=== PATIENT | female | born 1955 | race Caucasian/White ===

== ENCOUNTER → 2022-12-05 12:51 | Outpatient (CLI) | payer MEDICARE, OTHER, SELFPAY ==
--- NOTE | 2022-12-05 | DI.RAD.S_ITS ---
PROCEDURE: [place] JOINT INJECTION LARGE RT INDICATIONS: Other specified arthritis, right hip COMPARISON: None. TECHNIQUE: The indications, alternatives, benefits, risks, and complications of the procedure were explained to the patient. Written informed consent was obtained and placed in the chart. The patient was placed in an appropriate position on the fluoroscopy table, and a site was chosen for percutaneous access under fluoroscopic guidance. The site was prepped and draped in a sterile fashion. Local anesthetic was administered using a 1% lidocaine solution. A hypodermic or spinal needle was then used to access the symptomatic joint. Intra-articular location of the needle tip was confirmed by injecting a small amount of contrast, followed by steroid administration. The needle was then withdrawn, and a bandage applied to the puncture site. FINDINGS: Joint injected: Right hip Medications injected: 4 mL of 40 mg/mL Kenalog and 0.5% Ropivacaine mixture. Patient's pain before injection: 8 out of 10. Patient's pain after injection: 0 out of 10. Complications: None. IMPRESSION: Successful fluoroscopically guided administration of steroid and anaesthetic solution into the right hip joint. Approved by: Julien Curran M.D. on 12/05/2022 at 14:42
== END ==
PROVIDERS: PCP Registered Nurse; Referring Provider Registered Nurse; Visit Provider Registered Nurse
DX: M13.851 Other specified arthritis, right hip (principal)
CPT/HCPCS: 20610; 77002

== ENCOUNTER → 2023-04-24 12:38 | Outpatient (CLI) | payer MEDICARE, OTHER, SELFPAY ==
--- NOTE | 2023-04-24 | DI.RAD.S_ITS ---
PROCEDURE: [place] JOINT INJECTION LARGE RT INDICATIONS: ARTHRITIS RT HIP COMPARISON: [facility], , [place] JOINT INJECTION LARGE RT, 12/05/2022, 13:22. TECHNIQUE: The indications, alternatives, benefits, risks, and complications of the procedure were explained to the patient. Written informed consent was obtained and placed in the chart. The patient was placed in an appropriate position on the fluoroscopy table, and a site was chosen for percutaneous access under fluoroscopic guidance. The site was prepped and draped in a sterile fashion. Local anesthetic was administered using a 1% lidocaine solution. A hypodermic or spinal needle was then used to access the symptomatic joint. Intra-articular location of the needle tip was confirmed by injecting a small amount of contrast, followed by steroid administration. The needle was then withdrawn, and a bandage applied to the puncture site. FINDINGS: Joint injected: Right hip Medications injected: 6 mL of 40 mg/mL Kenalog and 0.5% Ropivacaine mixture. Patient's pain before injection: 8 out of 10. Patient's pain after injection: 0 out of 10. Complications: None. IMPRESSION: Successful fluoroscopically guided administration of steroid and anaesthetic solution into the right hip joint. Dictated by: Arie Omalley M.D. on 04/25/2023 at 13:34 Approved by: Arie Omalley M.D. on 04/25/2023 at 13:34
[2023-04-24] MEDS: ROPIVACAINE 0.5% PF 5 MG/ML 20ML VIAL 20 ML INJ (14:40)
[2023-04-24] MEDS: LIDOCAINE 1% 20 ML INJ (14:40)
[2023-04-24] MEDS: TRIAMCINOLONE 40 MG/ML VIAL INTRA-ARTI (14:41)
== END ==
PROVIDERS: PCP Registered Nurse; Referring Provider Registered Nurse; Visit Provider Registered Nurse
DX: M13.851 Other specified arthritis, right hip (principal)
CPT/HCPCS: 20610; 77002

== ENCOUNTER → 2023-06-09 12:42 | Outpatient (CLI) | payer MEDICARE, OTHER, SELFPAY ==
--- NOTE | 2023-06-09 12:43 | DI.RAD.S_ITS ---
PROCEDURE: [place] JOINT INJECTION MEDIUM LT INDICATIONS: Post-traumatic osteoarthritis bilateral shoulders COMPARISON: [facility], , [place] JOINT INJECTION MEDIUM RT, 06/09/2023, 14:31. TECHNIQUE: The indications, alternatives, benefits, risks, and complications of the procedure were explained to the patient. Written informed consent was obtained and placed in the chart. The patient was placed in an appropriate position on the fluoroscopy table, and a site was chosen for percutaneous access under fluoroscopic guidance. The site was prepped and draped in a sterile fashion. Local anesthetic was administered using a 1% lidocaine solution. A hypodermic or spinal needle was then used to access the symptomatic joint. Intra-articular location of the needle tip was confirmed by injecting a small amount of contrast, followed by steroid administration. The needle was then withdrawn, and a bandage applied to the puncture site. FINDINGS: Joint injected: Left glenohumeral joint Medications injected: 5 mL of 40 mg/mL Kenalog and 0.5% Ropivacaine mixture. Patient's pain before injection: 4 out of 10. Patient's pain after injection: 4 out of 10. Complications: None. IMPRESSION: Successful fluoroscopically guided administration of steroid and anaesthetic solution into the left glenohumeral joint. Dictated by: Mahesh Ling M.D. on 06/09/2023 at 16:06 Approved by: Mahesh Ling M.D. on 06/09/2023 at 16:06
--- NOTE | 2023-06-09 12:43 | DI.RAD.S_ITS ---
PROCEDURE: [place] JOINT INJECTION MEDIUM RT INDICATIONS: Post-traumatic osteoarthritis bilateral shoulders COMPARISON: [facility], , [place] JOINT INJECTION LARGE RT, 04/24/2023, 13:11. TECHNIQUE: The indications, alternatives, benefits, risks, and complications of the procedure were explained to the patient. Written informed consent was obtained and placed in the chart. The patient was placed in an appropriate position on the fluoroscopy table, and a site was chosen for percutaneous access under fluoroscopic guidance. The site was prepped and draped in a sterile fashion. Local anesthetic was administered using a 1% lidocaine solution. A hypodermic or spinal needle was then used to access the symptomatic joint. Intra-articular location of the needle tip was confirmed by injecting a small amount of contrast, followed by steroid administration. The needle was then withdrawn, and a bandage applied to the puncture site. FINDINGS: Joint injected: Right glenohumeral joint Medications injected: 5 mL of 40 mg/mL Kenalog and 0.5% Ropivacaine mixture. Patient's pain before injection: 5 out of 10. Patient's pain after injection: 5 out of 10. Complications: None. IMPRESSION: Successful fluoroscopically guided administration of steroid and anaesthetic solution into the right glenohumeral joint. Dictated by: Mahesh Ling M.D. on 06/09/2023 at 16:00 Approved by: Maehsh Ling M.D. on 06/09/2023 at 16:01
[2023-06-09] MEDS: TRIAMCINOLONE 40 MG/ML VIAL INTRA-ARTI ×2 (13:45→14:38)
[2023-06-09] MEDS: LIDOCAINE 1% 20 ML INJ (13:45)
[2023-06-09] MEDS: ROPIVACAINE 0.5% PF 5 MG/ML 20ML VIAL 3 ML INJ (13:45)
== END ==
PROVIDERS: PCP Registered Nurse; Referring Provider Physician Assistant Surgical; Visit Provider Physician Assistant Surgical
DX: M19.112 Post-traumatic osteoarthritis, left shoulder (principal); M19.111 Post-traumatic osteoarthritis, right shoulder
CPT/HCPCS: 20605; 77002

== ENCOUNTER → 2024-04-12 12:35 | Outpatient (CLI) | payer MEDICARE, OTHER, SELFPAY ==
--- NOTE | 2024-04-12 12:37 | DI.RAD.S_ITS ---
PROCEDURE: [place] JOINT INJECTION MEDIUM RT INDICATIONS: RIGHT HIP STEROID INJECTION COMPARISON: [facility], , [place] JOINT INJECTION MEDIUM LT, 06/09/2023, 14:49. TECHNIQUE: The indications, alternatives, benefits, risks, and complications of the procedure were explained to the patient. Written informed consent was obtained and placed in the chart. The patient was placed in an appropriate position on the fluoroscopy table, and a site was chosen for percutaneous access under fluoroscopic guidance. The site was prepped and draped in a sterile fashion. Local anesthetic was administered using a 1% lidocaine solution. A hypodermic or spinal needle was then used to access the symptomatic joint. Intra-articular location of the needle tip was confirmed by injecting a small amount of contrast, followed by steroid administration. The needle was then withdrawn, and a bandage applied to the puncture site. FINDINGS: Joint injected: Right hip Medications injected: 4 mL of 40 mg/mL Kenalog and 0.5% Ropivacaine mixture. Patient's pain before injection: 8 out of 10. Patient's pain after injection: 2 out of 10. Complications: None. IMPRESSION: Successful fluoroscopically guided administration of steroid and anaesthetic solution into the right hip joint. Dictated by: Jordi Szymanski M.D. on 04/12/2024 at 15:27 Approved by: Jordi Szymanski M.D. on 04/12/2024 at 15:32
[2024-04-12] MEDS: LIDOCAINE 1% 20 ML INJ (14:16)
[2024-04-12] MEDS: ROPIVACAINE 0.5% PF 5 MG/ML 20ML VIAL 3 ML INJ (14:16)
[2024-04-12] MEDS: TRIAMCINOLONE 40 MG/ML VIAL INTRA-ARTI (14:37)
== END ==
PROVIDERS: PCP Registered Nurse; Referring Provider Orthopaedic Surgery Adult Reconstructive Orthopaedic Surgery; Visit Provider Orthopaedic Surgery Adult Reconstructive Orthopaedic Surgery
DX: M16.11 Unilateral primary osteoarthritis, right hip (principal)
CPT/HCPCS: 20605; 77002; Q9967

== ENCOUNTER → 2024-07-28 14:42 | Outpatient (CLI) | payer MEDICARE, OTHER, SELFPAY ==
--- NOTE | 2024-07-28 15:07 | EKG_ITS ---
[facility] [address] [place] [address] Test Date: 2024-07-28 Pat Name: Kaela Carlson Department: [facility] Room: Gender: Female [employer] [place]: RAUDEL : 1955 Requested By: Order Number: [id number] Reading MD: Jeffrey Fisher Measurements Intervals [place] Rate: 120 P: ID: QRS: -24 QRSD: 92 T: 6 QT: 350 QTc: 494 Interpretive Statements Atrial fibrillation with rapid ventricular response Nonspecific ST and T wave abnormality Electronically Signed On 07-28-2024 23:46:22 PST by Jeffrey Fisher
[2024-07-28 15:30] LABS: Add Manual Diff / Slide Review NO; Basophils Absolute Auto 0 /uL (0-100); Basophils Percent Auto 0.6 % (0-2); Eosinophils Absolute Auto 300 /uL (0-450); Eosinophils Percent Auto 3.3 % (2-4); Hematocrit 43.8 % (36-46); Hemoglobin 14.8 g/dL (12.0-16.0); Lymphocytes Absolute Auto 1800 /uL (1100-4500); Lymphocytes Percent Auto 24.2 % (25-40); Mean Corpuscular HGB Conc 33.7 % (30-36); Mean Corpuscular Hemoglobin 33.6 PG (26-34); Mean Corpuscular Volume 99.7 fL (80-100); Monocytes Absolute Auto 1000 /uL (0-900); Neutrophils Absolute Auto 4400 /uL (1500-7000); Neutrophils Percent Auto 58.9 % (50-75); Platelet Count 300 X10^3/uL (150-400); Red Cell Distribution Width 13.7 % (11.6-14.8); White Blood Cell Count 7.5 X10^3/uL (4.5-11.0)
[2024-07-28 15:50] LABS: Albumin 4.2 g/dL (3.5-5.0); BUN Creatinine Ratio 29.1 (6-22); Blood Urea Nitrogen 16 mg/dL (7-17); Calcium 9.2 mg/dL (8.4-10.2); Carbon Dioxide 28 mmol/L (22-32); Chloride 98 mmol/L (98-107); Estimated Glomerular Filt Rate > 60 mL/min (>60); Glucose 103 mg/dL (80-110); HEMOLYSIS < 15 (0-50); Potassium 4.6 mmol/L (3.4-5.1); Sodium 137 mmol/L (137-145)
[2024-07-28 15:58] LABS: Prealbumin 17.3 mg/dL (17.6-36.0)
[2024-07-28 18:25] LABS: Vitamin D 25 Hydroxy (D3) 59.8 ng/mL (30.0-100.0)
[2024-07-28 21:01] LABS: Hemoglobin A1C% w Est Avg Glu 5.1 % (4.0-6.0)
== END ==
PROVIDERS: PCP Registered Nurse; Referring Provider Orthopaedic Surgery Adult Reconstructive Orthopaedic Surgery; Visit Provider Orthopaedic Surgery Adult Reconstructive Orthopaedic Surgery
DX: Z01.818 Encounter for other preprocedural examination (principal); R73.9 Hyperglycemia, unspecified; E55.9 Vitamin D deficiency, unspecified; R77.0 Abnormality of albumin; Z01.812 Encounter for preprocedural laboratory examination
CPT/HCPCS: 36415; 80048; 82040; 82306; 83036; 84134; 85025; 93005

== ENCOUNTER 2024-08-27 08:56 | Day surgery (SDC) | payer MEDICARE, OTHER, SELFPAY ==
[2024-08-17 09:54] VITALS: BMI 39.9
[2024-08-27] VITALS (8 sets, daily range): BP systolic 105–119; BP diastolic 64–94; PULSE 77–98; RESP 14–24; TEMP 35.8–36.3; O2SAT 90–99; BMI 39.0
--- NOTE | 2024-08-27 | DI.RAD.S_ITS ---
PROCEDURE: XR HIP W PEL IF DONE RT 2V INDICATIONS: RT ANTERIOR HIP TECHNIQUE: AP pelvis and lateral view of the hip acquired. COMPARISON: [facility], [place]Y, XR HIP W PEL IF DONE RT 2V, 08/27/2024, 12:37. FINDINGS: Bones: Patient is status post right hip arthroplasty, with hardware components in expected positions. The hip joint appears congruent. The visualized bony structures appear intact. Soft tissues: Overlying postoperative changes are noted. No suspicious soft tissue densities. Intrauterine device noted within the pelvis. IMPRESSION: Expected post-operative appearance of a hip arthroplasty. Dictated by: Lincoln Contreras M.D. on 08/28/2024 at 10:50 Approved by: Lincoln Contreras M.D. on 08/28/2024 at 10:51
--- NOTE | 2024-08-27 06:00 | DI.RAD.S_ITS ---
PROCEDURE: XR HIP W PEL IF DONE RT 2V INDICATIONS: lynnette TECHNIQUE: 6 operative view(s) of the hip acquired. COMPARISON: None. FINDINGS: 6 operative fluoroscopic images were utilized during total right hip arthroplasty. No radiographic evidence of complications. IMPRESSION: Operative imaging utilized during total right hip arthroplasty. Dictated by: Heath Martinez M.D. on 08/27/2024 at 13:30 Approved by: Heath Martinez M.D. on 08/27/2024 at 13:30
[2024-08-27] MEDS: MELOXICAM 7.5 MG TABLET 15 MG PO (09:31)
[2024-08-27] MEDS: LACTATED RINGERS 1,000 ML 42 ML IV ×2 (09:31→12:50)
[2024-08-27] MEDS: ACETAMINOPHEN 325 MG TABLET 975 MG PO (09:31)
--- NOTE | 2024-08-27 10:30 | PM.PREOP ---
Pre-operative Note Interval Note History & Physical reviewed/Exam performed by Physician: Yes Changes to H&P: No
--- NOTE | 2024-08-27 10:36 | PM.PREOP ---
Pre-operative Note Interval Note History & Physical reviewed/Exam performed by Physician: Yes Changes to H&P: No
[2024-08-27] MEDS: CEFAZOLIN 2 GM/100 ML PREMIX 100 ML IV ×2 (11:10→20:01)
[2024-08-27] MEDS: TRANEXAMIC ACID 1,000 MG VIAL 2000 MG INJ ×2 (11:15→12:51)
--- NOTE | 2024-08-27 11:40 | SUR.OPER ---
Supine on padded Cash table with bilateral legs secured in padded positioning boots and suspended in positioning spars, operative leg in traction per surgeon. Head on one pillow. Arms secured on padded armboard <90 degrees abduction. Padded perineal post in place per surgeon.
[2024-08-27] MEDS: ROPIVACAINE/EPI/CLONIDINE/KET 50 ML SYRINGE INJ (12:02)
--- NOTE | 2024-08-27 13:07 | P.OP_ITS ---
Operative Date/Time/Diagnoses Date of procedure: 08/27/24 Pre-op diagnosis: Right hip osteoarthritis Post-op diagnosis: same Procedure & Clinicians Procedure: Right total hip arthroplasty Same procedure as scheduled: Yes Surgeon: Eric Sanon [employer] Officer: Anne Marie Henderson Anesthesia Type: General, Spinal, Sedation and Local Operative Notes Estimated Blood Loss (mL): 100 Procedure in detail: Right Uncemented Direct Anterior Depuy Total Hip Arthroplasty: Implants: * [place] Gription size 56 cup? * [Actis] femoral stem size 7 high offset? * 36 mm -2 ceramic femoral head? Procedure Summary: This 69-year-old female patient had a total hip arthroplasty today. Her case was noteworthy for the following reasons: 1. The time I initially saw her she had a BMI of 47. I counseled her that an anterior approach total hip arthroplasty at that weight carried an unacceptably high complication rate and therefore recommended weight loss prior to proceeding with surgery. She has used a GLP agonist to lose weight since that time. Her current BMI is 40. During surgery today utilized an obstetric pannus retractor to manage her overlying pannus. I will prescribe prophylactic cefadroxil 500 mg twice per day for 10 days postoperatively to limit her infection risk which remains elevated given her BMI. 2. The patient practices the Islam gladis and does not accept blood products. I therefore utilized a werewolf electrocautery device during today's procedure to limit blood loss. I took extra precautions to coagulate all of her adipose tissue during the approach in particular. I estimated blood loss at 100 mL at the conclusion of the procedure. 3. The patient has cardiac risk factors and takes Xarelto 20 mg at baseline. I personally contacted her administrative assistant to inquire about the feasibility of temporarily transitioning her to Eliquis 5 mg twice per day postoperatively to limit her bleeding risk after surgery and he was amenable to this so she will utilize that for a month postoperatively for DVT prophylaxis in order to limit her bleeding risk relative to Xarelto. 4. She had severe pain due to her hip arthritis and found it very challenging to stand normally for her x-ray so our templating film was not particularly helpful and anticipating sizes for today's surgery. I therefore utilized several rounds of trialing to attempt to find the right combination of leg length offset and stability before arriving at the final construct that was eventually implanted. Procedure in Detail: This patient was seen preoperatively and evaluated for hip pain which was refractory to numerous nonoperative treatment modalities. Their hip pain correlated with radiographic changes demonstrating significant degeneration in the hip joint. The risks and benefits of continued nonoperative management versus operative management were discussed at length and all of the patient?s questions were answered. Additional educational materials providing further details beyond our discussion in clinic were provided via a publicly available patient education video which included the incidence of medical complications associated with total hip arthroplasty, reasons for revision following total hip arthroplasty, and patient satisfaction rates following total hip arthroplasty. That video can be accessed at [email or web address] . With this understanding of the risks inherent to the procedure, the patient elected to move forward with operative management. Following preoperative optimization, the patient was scheduled for surgery. The patient was met in the preoperative holding area the day of the procedure and all questions were answered. The patient?s nares were swabbed with betadine in order to decolonize them from MRSA. Informed consent was signed and the right limb was marked with indelible ink.? The patient was brought back to the operating room where anesthesia was induced. The patient was transferred to the [place] table and all bony prominences were padded. The operative site was prepped and draped in the usual sterile fashion. Prior to incision, tranexamic acid and cefazolin were administered. Operative templating images were displayed demonstrating the anticipated implant sizes and correct operative extremity. A timeout procedure was performed verifying the patient?s identity, medical comorbidities, allergies, relevant medications, anesthesia type and the surgical plan. All present were in agreement. The assistance of a physician speech assistant was required for positioning, room setup, soft tissue retraction and wound closure. Without this assistance, the procedure would have been significantly more challenging and time consuming.?? A direct anterior approach to the hip was utilized. This was performed with a longitudinal incision through a Heuter interval. The incision was planned 2 cm distal and 2 cm lateral to the ASIS extending towards the lateral patella, in line with the muscle body of the TFL. Following incision, the subcutaneous tissue was dissected while taking care to avoid injury to the lateral femoral cutaneous nerve. The fascia overlying the TFL was identified by dissecting off the overlying fat and identifying perforating vessels to the TFL. The TFL fascia was incised and dissected away from the medial border of the TFL. A retractor was placed over the superior femoral neck between the abductors and the hip capsule and used to reflect the TFL laterally. A [place] self-retainer was then placed in the distal aspect of the wound between the TFL and the rectus femoris. This was tensioned to open up the direct anterior interval and the lateral circumflex vessels were identified and coagulated using electrocautery. The floor of the TFL fascia was incised, exposing the pericapsular fat overlying the hip capsule. A second cobra retractor was placed on the inferior femoral neck. A retractor was placed on the anterior wall of the acetabulum and used to tension the reflected head of rectus femoris, which was then released in order to limit soft tissue tension. A capsulotomy was made in the midline of the anterior hip capsule in line with the femoral neck ending at the vastus tubercle. The retractor was removed in order to limit the amount of time that a soft tissue retractor remained on the anterior wall and limit tension on the femoral nerve. Tag stitches were placed in the superior and inferior leaflets of the hip capsule. An Telly soft tissue retractor was introduced over the tag stitches and tensioned in the interval between the rectus femoris and the TFL in order to retract and protect those muscles. The cobra retractors were replaced intracapsularly, with one over the superior neck in the pocket created by the base of the greater trochanter and the other on the femoral head. The capsulotomy was extended laterally to the base of the greater trochanter and medially to the lesser trochanter. This required externally rotating the hip. Once the lesser trochanter had been identified, a neck cut was planned according to measurements from preoperative templating. A ruler was cut at the length measured between the superior aspect of the lesser trochanter and the collar of the prosthesis. This line was extended towards the inferior aspect of the lateral cobra retractor to plan a cut which would leave minimal residual femoral neck laterally. The neck was cut at 60 degrees of external rotation along that line. A second cut was performed to remove a large napkin ring and facilitate head extraction. The napkin ring cut and femoral head were removed.?? A broad anterior wall retractor was placed between the labrum and the anterior capsule so that the anterior capsule would prevent capturing and pinching the femoral nerve anteriorly. An additional retractor was placed on the posterior wall. External rotation and traction were applied through the [place] table so that the cut surface of the femoral neck would not restrict access to the acetabulum. The labrum was excised sharply and the pulvinar was excised with electrocautery to limit bleeding from branches of the obturator artery. Ac etabular reamers were selected based on preoperative templating and measurements of the excised femoral head. These were introduced into the acetabulum. Fluoroscopy was utilized to replicate a standing AP pelvis radiograph by centering over the pelvis, rotating until there was appropriate symmetry between the obturator foramen, and introducing caudal tilt to match the position of the pubic symphysis relative to the sacrococcygeal junction according to the patient?s anatomy. Once satisfied with the reaming depth corresponding to the preoperative template and the pinch fit between the columns, an appropriate sized acetabular cup was selected which would provide 1 mm of press-fit. This cup was introduced and manipulated until appropriate abduction and anteversion angles were obtained with careful attention to appropriate abduction and anteversion angles as evaluated by the position of the cup relative to the anterior and posterior lopez of the acetabulum and the AP fluoroscopy which recreated the patient?s standing radiograph. The cup was impacted into place. Peripheral osteophytes were removed. The acetabular liner was then placed with care to ensure locking of the locking mechanism.? Attention was then turned to the femur. All retractors were removed, traction was released, a retractor was placed in the interval between the hip capsule and the gluteus minimus, and the hip was externally rotated to 90 degrees. The lateral capsule was released using electrocautery. Traction was released and a [place] hook was placed posteriorly around the proximal femur at the level of the vastus ridge. The table height was lowered in order to restrict the tension on the anterior structures during hip hyperextension to limit the risk of femoral nerve palsy. With traction off and the hip at 90 degrees of external rotation, the hip was hyperextended and adducted while manually elevating the femur away from the acetabulum with the [place] hook to ensure it would not be caught behind the greater trochanter. An asymmetric retractor was placed over the calcar and a broad double-pronged retractor was placed over the greater trochanter. The tag stitch capturing the lateral leaflet of the capsule was moved to the medial side, leaving the conjoined and piriformis tendons isolated in the face of the greater trochanter. The hip was externally rotated and elevated. A release of the conjoined tendon was [not] necessary in order to obtain adequate exposure for broaching. The canal was opened with an opening broach and a rasp was used to remove cancellous bone. A rongeur was used to remove the residual lateral bone at the base of the greater trochanter to avoid placing the stem in varus. The femur was then broached to the appropriate sized stem yielding good rotational fit and fill of the canal as well as appropriate version of the stem trial. Neck and head trials were placed, all retractors were removed and the hip was returned to neutral abduction and extension. I then reduced the hip and manually trialed it before changing surgical gloves. Initial trialing was performed with a size 7 broach, a high offset neck and a +5 head. I could not reduce the hip with the construct so I returned to the broaching position and removed the trials and placed a standard offset stem along with the +5 head. I returned to neutral hip extension and reduced it. I could not dislocate the hip with maximum manual external rotation. I then locked the hip in 45 degrees of external rotation and dropped it to the floor with traction off which demonstrated no instability. An AP pelvis fluoroscopic image matching the preoperative standing radiograph with both lesser trochanters visible and both hips in 40 degrees of external rotation demonstrated that the operative site was excessively long and had insufficient offset. I therefore again removed the trials and placed a high offset neck with a-2 head. This would result in increased offset while decreasing length. I repeated the stability trialing and again found no instability with either maximum external rotation or the 45 degree drop test. On an AP pelvis with a long metal bar extending across the transitional line leg length and offset now appeared appropriate. AP and lateral hip fluoroscopic images were obtained to evaluate the broach size which demonstrated good canal fill. The hip was dislocated and I returned to the broaching position. Based on my evaluation during initial trialing I planned to place those implants. The definitive stem was placed and the trunnion was cleaned and dried. I placed a ceramic head onto the trunnion and impacted it into place on the [place] taper.?? All retractors were removed and the hip was reduced. A dilute mixture of betadine and peroxide was used to bathe the soft tissues during final fluoroscopic assessment. Appropriate component positioning was confirmed on an AP pelvis radiograph with the operative and nonoperative legs in 40 degrees of external rotation, evaluating leg length and offset. Appropriate stem fill was evaluated on AP and lateral hip radiographs. No fractures were identified on these radiographs. There was no hip instability with maximum (110?) external rot ation as well as a 45 degree drop test. The hip was copiously irrigated with pulse lavage. The capsule was closed with absorbable interrupted suture. The TFL fascia was closed with barbed suture wh ile carefully protecting the lateral femoral cutaneous nerve from entrapment. A mixture of Ropivacaine, Epinephrine, Clonidine and Toradol was infiltrated throughout the soft tissues. The skin was closed with 2-0 and 3-0 sutures. Surgical glue was applied and a soft dressing was placed.??The sponge, instrument and needle counts were reported as being correct at the end of the case.??No obvious complications occurred. The patient was transferred from the [facility] back to a stretcher. The patient emerged from anesthesia without difficulty and was taken to the PACU in a stable condition.? Plan for aftercare: * No hip precautions * Weightbearing as tolerated * Eliquis 5 mg twice per day beginning tomorrow for DVT prophylaxis * Cefadroxil 500 mg twice per day for infection prophylaxis * The patient's has several medical conditions of his own and the patient is worried about his ability to care for her after surgery so we will enlist the help of social work to arrange home health nursing * Anticipate discharge home tomorrow * Multimodal pain regimen with no IV opioids ordered * Apply ice machine to operative hip. Ensure that sufficient ice is in the chamber for the pad to remain cold * Follow up at [facility] in 2 weeks * Detailed postoperative instructions available at [email or web address]
[2024-08-27] MEDS: OXYCODONE IR 5 MG TABLET PO ×3 (13:58→21:45)
[2024-08-27] MEDS: hydrOXYzine 50 MG/ML INJ 25 MG IM (14:01)
[2024-08-27] MEDS: ACETAMINOPHEN 325 MG TABLET 650 MG PO ×2 (15:09→20:01)
[2024-08-27] MEDS: IBUPROFEN 600 MG TABLET PO ×2 (15:10→20:01)
[2024-08-27] MEDS: LACTATED RINGERS 1,000 ML 100 ML IV (15:13)
--- NOTE | 2024-08-27 16:39 | PT-IP ANOTE ---
PT eval order received. EMR reviewed. Checked on pt and pt still has numbness on unable to move LLE much and not ready for PT. obtained PLOF and home set up. post-op folder provided to pt. will checked back on pt tomorrow for PT eval.
[2024-08-27] MEDS: DOCUSATE 100 MG CAPSULE PO (20:52)
[2024-08-27] MEDS: ATORVASTATIN 20 MG TABLET 40 MG PO (20:52)
[2024-08-28] MEDS: ACETAMINOPHEN 325 MG TABLET 650 MG PO ×3 (02:29→14:15)
[2024-08-28] MEDS: OXYCODONE IR 5 MG TABLET PO ×2 (02:29→09:19)
[2024-08-28] MEDS: IBUPROFEN 600 MG TABLET PO ×3 (02:29→14:15)
[2024-08-28] MEDS: CEFAZOLIN 2 GM/100 ML PREMIX 100 ML IV (02:30)
[2024-08-28 02:32] VITALS: BP 131/78; PULSE 102; RESP 18; TEMP 36.2; O2SAT 98
[2024-08-28 08:00] VITALS: BP 100/69; PULSE 97; RESP 14; TEMP 36.3; O2SAT 98
[2024-08-28 08:37] LABS: Hematocrit 34.1 % (36-46); Hemoglobin 11.8 g/dL (12.0-16.0)
--- NOTE | 2024-08-28 08:45 | PT.IIE ---
Current Diagnoses Unilateral primary osteoarthritis, right hip (08/27/24) Surgery Performed Operation Date: 08/27/24 10:45 Actual Procedures p Total Hip Arthroplasty/Anterior Approach(Right) - Eric Sanon MD Surgical History (Last Reviewed 08/27/24 @ 09:17 by Susu Mclean, RN) History of tonsillectomy and adenoidectomy Hx of cholecystectomy Medical History (Last Updated 08/27/24 @ 09:17 by Susu Mclean, RN) Anxiety Aortic root dilatation Atrial fibrillation Carotid atherosclerosis Chronic diastolic (congestive) heart failure Depression Eczema Heart failure HLD (hyperlipidemia) HTN (hypertension) Hx of precordial chest pain IUD (intrauterine device) in place No blood products Obesity (BMI 30-39.9) Osteoarthritis Paranoia Physical Therapy Inpatient Evaluation/Re-Eval M1 PT/OT-IP Prior Functional Status Start: 08/27/24 16:36 Freq: NEEDED Status: Active Protocol: Document 08/28/24 08:45 AB (Rec: 08/28/24 13:20 AB [id number]) Medical Review Prior Functional Status Medical History Reviewed Yes Communication able to make needs known Mobility and Gait pt stated that she was modified independent with all mobilities and ambulation using a 4WW indoors but uses her SPC only to transfer from bed<>lift chair; uses 2 SPC for outdoor mobility Social History Household Members spouse,family Living Arrangements House Number of Floors (Floors) Two Floors Number of Stairs To Enter/Railing? pt stays on main level of the house Home Environment Standard Height Toilet,Walk in Shower Home Equipment Front Wheel Walker,Four Wheel Walker,Straight Cane,Raised Toilet Seat w/Armrests,Shower Seat without Backrest,Hand Held Shower,Lift Recliner,Grab Bars Near Toilet,Grab Bars In Shower Additional Social History Comment pt lives with spouse but spouse will not be able to assist pt; pt's daughter is the caregiver for pt's spouse and stated that she cannot assist pt since she has to assist pt's spouse; pt's son and family lives upstairs but will not be able to assist pt. pt plans to sleep on her lift chair M2 PT-IP Current Condition Start: 08/27/24 16:36 Freq: NEEDED Status: Active Protocol: Document 08/28/24 08:45 AB (Rec: 08/28/24 13:20 AB [id number]) Physical Therapy Current Condition Current Condition Evaluation Date 08/28/24 Treatment Diagnosis s/p R REAGAN anterior; difficulty in walking Onset Date 08/27/24 M3 PT-IP Subjective Start: 08/27/24 16:36 Freq: NEEDED Status: Active Protocol: Document 08/28/24 08:45 AB (Rec: 08/28/24 13:20 AB [id number]) Subjective Physical Therapy Visit Type Type Initial Evaluation Visit Start Time 08:45 Visit Stop Time 09:25 Number of BLUEPRINTING AND PHOTOCOPY SUPERVISOR Visits 0 Physical Therapy Visit Comments Patient Comments agreeable to do PT Therapy Pain Assessment Pain When Pain Assessed At Rest Pain Present Pain Present Pain Reported Location Right Thigh Intensity 1 Pain Management Techniques Apply Cold,Distraction, Modification of Treatment, Timing of Activity with Medications M4 PT-IP Mobility and Gait Start: 08/27/24 16:36 Freq: NEEDED Status: Active Protocol: Document 08/28/24 08:45 AB (Rec: 08/28/24 13:20 AB [id number]) PT-Bed Mobility Assessment Supine to Sit Supine to Sit Maximum Assistance,1 Person Assistance PT-Transfer Assessment Sit to and From Stand Sit to and from Stand Standby Assistance,Contact Guard Assistance,1 Person Assistance,Use of Upper Extremities Equipment Transfer Assistive Device Gait Belt,Front Wheeled Walker Orthotic/Prosthetic Devices or Brace: No Transfers Transfer Destination Bed Transfer Technique ambulated Transfer Ability Level of Assist Standby Assistance,Contact Guard Assistance,1 Person Assistance,Use of Upper Extremities Comments Mobility Comments pt in bed. daughter in room. pt completed supine to sit max A and cues with HOB elevated. pt plans to sleep on her lift chair. sit to stand form EOB CGA and ambulated to chair ~ 15 ft CGA. offered pt's daughter to do caregiver training and daughter stated that she is a caregiver and knows what to do but will not be the person that is going to assist pt. daughter stated that she is taking care of her dad and will not be able to take care of pt at the same time. daughter has concerns about HH services and assistance for pt. informed manager of case management. pt completed sit to stand from chair SBA and ambulated more in room using FWW ~ 50 ft SBA. pt agreed to stay up on the chair. call light and table placed within reach. Gait Assessment Gait Gait Assistance Required: Standby Assistance,Contact Guard Assist Distance (Feet) 50 Able to Maintain Weight Bearing Status Yes During Gait Assistive Devices Assistive Device Gait Belt,Front Wheeled Walker Orthotic/Prosthetic Devices or Brace: No Gait Deviations General Gait Pattern Antalgic,Decreased Feet Clearance Factors Limiting Gait Function Factors Limiting Gait Function Decreased Activity Tolerance, Decreased Sensation,Decreased Strength,Limited Range of Motion,Pain,Poor Balance,Poor Safety Awareness PT-Balance Assessment Sitting Balance and Reactions Static Sitting Balance Ability Normal Dynamic Sitting Balance Ability Normal Standing Balance and Reactions Static Standing Balance Ability Good Dynamic Standing Balance Ability Fair Device Used FWW M5 PT-IP Objective Assessments Start: 08/27/24 16:36 Freq: NEEDED Status: Active Protocol: Document 08/28/24 08:45 AB (Rec: 08/28/24 13:20 AB [id number]) Orientation Orientation/Cognition Level of Alertness Alert Orientation Name,Place,Situation Language Function Ability No Deficits Noted Safety Awareness Decreased Safety Awareness Memory Description Short Term Impaired Gross Range of Motion Lower Extremity ROM Assessment Within Functional Limits Strength Lower Extremity Strength Assessment Right Impaired Hip 3-/5 Knee 3+/5 Coordination Assessment Gross Coordination Gross Coordination WNL Sensation Assessment Sensation Gross Sensation WNL Muscle Tone Muscle Tone WNL Yes M6 PT-IP Treatment Start: 08/27/24 16:36 Freq: NEEDED Status: Active Protocol: Document 08/28/24 08:45 AB (Rec: 08/28/24 13:20 AB [id number]) Physical Therapy Treatment Education Education Provided Precautions,Weight Bearing Status,Post-Op Packet,Safety M7 PT-IP Assessment and Plan Start: 08/27/24 16:36 Freq: NEEDED Status: Active Protocol: Document 08/28/24 08:45 AB (Rec: 08/28/24 13:20 AB [id number]) PT Summary Assessment and Plan Potential Rehabilitation Potential Fair Status of Condition at Evaluation Stable Summary Impairments Pain,ROM,Strength,Balance, Coordination,Sensation,Tone, Cognition,Bed Mobility, Transfers,Gait,Activity Tolerance Assessment Summary pt is a 69 y/o F s/p R REAGAN anterior approach. per Dr. Sanon's note: no hip precutions. pt is WBAT on RLE. pt requiring SBA for transfers and ambulation using FWW. pt requiring max A for bed mobility but plans to sleep on her lift chair. pt has outpt PT set up. offered caregiver training to pt's daughter but declined. Goals Bed Mobility Goal Independent Transfer Goal Independent,Front Wheeled Walker Gait Goal Independent,Front Wheel Walker Gait Distance 200 Other Goals improve transfers and ambulation using 4WW mod I ~ 250 ft Days to Meet Goals 5 Frequency of Treatment Frequency Of Treatment Twice a Day Treatment Plan Physical Therapy Treatment Plan Bed Mobility Training,Transfer Training,Gait Training, Therapeutic Exercise,Balance Retraining,Post Op Education, Discharge Planning,Hot or Cold Pack,Neuromuscular Re-ed, Coordination Retraining,Manual Therapy Weight Bearing Status Weight Bearing Status Weight Bear as Tolerated Allowed Weight Bearing Amount (enter % RLE WBAT or #) (%) Recommendations To Nursing Amount of Assist Needed Standby Assistance Discharge Recommendations PT Discharge Recommendations Home with Assistance, Outpatient PT Transportation Needs at Discharge Private Vehicle - PT assist SBA
[2024-08-28] MEDS: DULOXETINE 20 MG CAPSULE PO (09:20)
[2024-08-28] MEDS: METOPROLOL ER 50 MG TABLET 100 MG PO (09:20)
[2024-08-28] MEDS: DULOXETINE 30 MG CAPSULE 60 MG PO (09:20)
[2024-08-28] MEDS: FUROSEMIDE 20 MG TABLET PO (09:20)
[2024-08-28] MEDS: METFORMIN HCL 500 MG TABLET 1000 MG PO (09:21)
[2024-08-28 10:15] VITALS: BP 100/69
--- NOTE | 2024-08-28 12:08 | CM.DANOTE ---
Addendum entered by MIGUEL ANGEL Koehler 08/28/24 15:08: ADD: Per Ortho PA, pt stable for d/c and discharge summary complete and discharge orders in EMR. [facility] confirms they received the referral and can accept. SW met bedside with pt, spouse, and adult Dtr and updated on discharge pwk complete and provided [facility] brochure and Dtr still requests CG training with PT as she has a few final questions and discussion with family members earlier and they will all take turns checking on pt and spouse and providing assist as needed. Family confirms they are anxious and nervous about pt d/c home but aware no medical need to stay in the hospital. PT kindly will meet bedside with pt and Dtr to answer final questions for CG training. HINN letter printed and completed in case Dtr determines she will not take pt home but not given as they currently are confirming d/c home today. BF Original Note: Patient is a 69 yo female who was admitted [facility] on 08/27/24 for RTHA. Pt has [facility] and [facility] for insurance and her PCP is Carmelina Bhatti. EMR was reviewed. Per Zach PA, pt tolerated procedure well, pain is controlled and pt tolerated her diet and likely stable for discharge home this afternoon. Per PT, pt was mostly SBA for mobility and Dtr was present during eval and recommending home with outpt PT but family wanting HH. SW met bedside with pt and her adult Dtr Ludy and explained role and they confirm that pt and spouse live in [place] in the downstairs portion of their son's house. Local Dtr Ludy provides daily assist to pt's spouse at baseline. Dtr has concerns with providing assist for both pt and spouse. Dtr inquiring if pt can remain in the hospital or other options at d/c and SW explained pt meets [facility] criteria for her planned hip surgery and since pt is ambulating and no medical need to remain in the hospital for ongoing medical care then Medicare will not cover the cost of SNF (and likely she would not qualify as she is mostly SBA for mobility) or remaining in the hospital as she is stable for lower level of care. SW discussed HH services and frequency (they have used both [facility] and [facility] in the past) or Private Pay CGs or asking additional family members to assist at d/c for a day or two to confirm pt continues to ambulate around the house SBA. Dtr confirms that she will talk to her brother who lives upstairs and is around this weekend as well as some older teenager grandkids. Pt accidentally received an Important Message from Medicare and Dtr had considered appealing discharge but SW explained that pt does not meet Inpt Criteria under Medicare guidelines and would not be able to appeal. Dtr acknowledged understanding. Request for SW to make [facility] referral and pt's son will be bedside around lunchtime with other family members and PT kindly agreeable to do further CG training with them towards plan of discharge home this afternoon. SW made referral to [facility] along with [facility] and orders and just waiting for updated PT note and d/c summary to send. Plan: SW to follow for plan of home with son and Dtr assist this afternoon and new [facility] referral made. MIGUEL ANGEL Koehler Discharge Planning/Care Management CM Discharge Assessment Start: 08/28/24 12:05 Freq: Status: Active Protocol: Document 08/28/24 12:05 (Rec: 08/28/24 12:08 [id number]) Discharge Planning Assessment Assigned Wastewater Treatment Engineer MIGUEL ANGEL Cosme DPOA/Assigned Designee Name spouse Andriy and Dtr Ludy Contact Information [phone] Advance Directives? Yes Advance Directives on File No History Provided By Patient,Family Member,Medical Record Has Patient been admitted in last 30 No days? Prior Living Arrangements House Household Members spouse,family Comment Lives with spouse in downstairs level of son's house, local Dtr provides daily assist Type of transporation used prior to Relies on Others admit Independent with ADL's Yes Is patient alert and oriented? Yes Needs Assistance With Managing Medications,Home Chores / Shopping Caregiver for Another No: spouse needs assist but local Dtr provides assist Community Services used prior to Physical Therapy,Occupational admission: Therapy,Home Health Aid,Home Health Nurse Comment preference is [facility] Already Rented / Owned FWW / Walker Patient/Family Preference Home with Home Health Barriers to Discharge No Discharge Plan Home with Home Health Community Services Physical Therapy,Occupational Therapy,Home Health Aid,Home Health Nurse Transportation Arrangement Dtr and son bedside and can provide transport at d/c Referrals Initiated Home Health If patient plan is home with home health Yes : Has signed face to face form been completed? Medicare Choice List Provided Yes Medicare choice list reviewed on patient,family electronic tablet with SNF/HH Preference [facility] Whiteboard Updated in Patient Room with Yes name and ext. # of Wastewater Treatment Engineer Review Status In Process Please Provide Date Initial DC 08/28/24 Assessment Was Performed Next Review Type Continued Stay Review Pre-Anesthesia Assessment Start: 08/17/24 09:54 Freq: Status: Active Protocol: Document 08/17/24 09:54 CAB (Rec: 08/17/24 10:57 CAB [id number]) Pre-Anesthesia Assessment PAC Comment Phone assess 08/17/24 Patient Information Reviewed Via Phone Assessment Assessment Completed With Patient,Child Diagnostic Results BMP/CMP,CBC,EKG Primary Care Provider Renetta Mata Seen Specialist in Last 12 Months Yes Specialist Seen Stroke Belt Sander Operator,Orthopedist Primary Language [place]ese Stem Roller Or Crusher Operator Required No Height 165.1 cm Weight 108.862 kg Body Mass Index (BMI) 39.9 Hearing Ability Normal Visual Assist Glasses Dentition Type Teeth, Natural Present,Teeth, Missing Barriers to Learning None Other Aids No Hx Anesthesia Reactions No Hx Family Anesthesia Reaction No Hx Malignant Hyperthermia No Hx Blood Transfusions No: Pt is Presybeterian - NO BLOOD PRODUCTS Anesthesia Review Requested No Road Roller Operator No alcohol intake current alcohol intake frequency a few times a week Smoking Status Former smoker how long ago did patient quit smoking 1974 Substance Use Type [#R] does not use Pain Present Pain Reported Musculoskeletal Symptoms Abnormal Gait,Difficulty Walking,Joint Pain History of Falling (Recent or History of No ) Patient is completely paralyzed or No completely immobile Prosthesis or Orthotic Device Cane,Front Wheel Walker Mental Status Oriented to own ability Is patient on oxygen? No Does patient have RICARDO/SOB No Hx Sleep Apnea No Currently Taking a Beta Brie Yes Can You Climb a Flight of Stairs Without No SOB Hx Chest Pain No Hx SOB No Hx Syncope or Dizziness Yes: Occasional dizziness, chronic Anti-Coagulant Therapy Yes: Xarelto - advised to hold 2 days prior per cardiology Has a Stroke Belt Sander Operator Yes: Last visit 04/26/24 Stroke Belt S[address] Operator name Dr. Sparks @ [facility] Cardiac Testing No Hx Pacemaker/ICD No Pacemaker Rep Required? No Cardiac Clearance Received Yes Comment Cardiac records scanned and in surgery folder Diet Type At Home Regular Dysphagia No Gastrointestinal Symptoms None Bladder Pattern Frequency,Incontinent,Urgency Urinary Catheter Present No Hx Urinary Self Catheterization No Diabetes No HgbA1C 5.1 Date 07/28/24 Patient No Lactating No Hx Drug Resistant Organism No Presence of External or Internal Medical Yes: IUD Devices Comment No covid symptoms last 8 weeks Marital Status Lives With spouse,family Current Living Arrangements House Number of Floors (Floors) 3 or More Floors Support System None,Spouse Comment Daughter states no one in the home is able to care for patient post-op Does the Patient Have Assistance After No Surgery Patient Discharge Plan Description Return Home Comment Pt advised overnight length of stay per surgeon Feels Safe in Current Environment Yes Been Physically Hurt or Threatened By a No Person in Current Environment Do you have thoughts of harming yourself None or others? Are you currently considering suicide? No Do you have a plan to hurt yourself or No Plan others? Do You Have Any Spiritual Beliefs That Yes: Pt is Presybeterian - May Affect Your HC Choices? NO BLOOD PRODUCTS Do You Have Any Cultural Practices That No May Affect Your HC Choices? Who Can We Speak to About Patient's Care Family, friends Identifying Code for Release of Patient Declines to issue Information Health Care Proxy/Next of Kin Ludy (daughter) Health Care Proxy Emergency Contact Name Andriy () Emergency Contact or [phone] Advance Directives? Yes Advance Directives on File No Requested Patient Bring Advanced Yes Directives DOS Power of Fish Cutting Machine Operator Yes PAC Instructions Assistance for 24 hours post- op,Do not shave/clip surgical site,Durable medical equipment ,Medications to take/avoid,No ETOH/petroleum product on skin DOS,NPO,Pre-surgical wash, Sturdy shoes/comfortable clothes,Do not bring valuables and remove jewelry
--- NOTE | 2024-08-28 12:30 | P.DS_ITS ---
History of Present Illness History of Present Illness Chief complaint: OPB Narrative: Kaela is a pleasant 69 year old female who is POD#1 s/p R anterior REAGAN by Dr. Sanon. This morning patient reports she is doing well and is hopeful to d/c to home today. Her family expresses concerns about limited support at home d/t patient living alone w/ her who is not able to provide much physical support to patient during the immediate post-op period. Patient reports she has no steps at home. She has her post-op pain medication, ice machine and Eliquis at home already. (she is chronically anticoagulated due to AFib). She made good progress working with PT this morning, she has been urinating without issue. H&H this AM stable at 11.8 and 34.1. Denies fever, chills, chest pain, SOB, nausea, vomiting. Operative Date/Time/Diagnoses Date of procedure: 08/27/24 Pre-op diagnosis: Right hip osteoarthritis Post-op diagnosis: same Procedure & Clinicians Procedure: Right total hip arthroplasty Same procedure as scheduled: Yes Surgeon: Eric Sanon Parts Interpreter: Anne Marie Henderson Anesthesia Type: General, Spinal, Sedation and Local Operative Notes Estimated Blood Loss (mL): 100 Procedure in detail: Right Uncemented Direct Anterior Depuy Total Hip Arthroplasty: Implants: * [place] Gription size 56 cup? * [Actis] femoral stem size 7 high offset? * 36 mm -2 ceramic femoral head? Discharge Providers Provider Discharge Date: 08/28/24 Primary care physician: CHAPINCITO Damon Consults: 08/27/24 06:00 Consult to Anesthesiology Routine Comment: Consulting Provider: Anesthesiologist Reason for consultation: Regional block for post operative pain control Consult to [facility] - Intensive Care Unit Registered Nurse Routine Comment: Intensive Care Unit Registered Nurse Consult needed for:: Other reason (Comment) Unable to care for self Comment: Per daughter, patient may need discharge to a Longterm Facility at discharge; Daughter desiring to speak to ENGINEERING PSYCHOLOGIST 08/27/24 14:18 Consult to Discharge Planning Routine Comment: Consult to Physical Therapy Evaluate & Treat Comment: Physician Instructions: post op REAGAN protocol 08/27/24 16:28 Consult to Discharge Planning Routine Comment: Patient is requesting home health nursing 08/28/24 11:59 Consult to Home Health Routine Comment: RTHA Reason For Exam: Set up HH RN/PT/OT/CMV DRIVER for d/c to home Discharge provider: Carmela Galarza PA-C Summary Hospital Course Discharge Diagnosis: Stable status post right total hip arthroplasty Hospital Course: Uncomplicated hospital course Exam Vital Signs (past 8 hours): - 08/28/24 08:00 Temperature 97.4 F L Pulse Rate 97 H Respiratory Rate 14 Blood Pressure 100/69 Pulse Oximetry 98 Oxygen Flow Rate 0 Oxygen Delivery Method Room Air Oxygen Flow Rate 0 Narrative Exam Narrative: Patient sitting comfortably in bedside chair during our interview today. No acute distress. AOx3. Grossly normal alignment of the right lower extremity. 5/5 strength with DF, PF, EHL bilaterally. Gross sensation intact throughout bilateral lower extremities. Calves soft and non-tender bilaterally. Brisk capillary refill, pulses intact. Post-surgical Aquacel dressing clean, dry and intact over the right hip without drainage. Objective Labs 08/28/24 08:32 Labs: Laboratory Results - last 24 hr 08/28/24 08:32 Hgb 11.8 L Hct 34.1 L PFSH Medical History (Updated 08/27/24 @ 09:17 by Susu Mclean RN) Obesity (BMI 30-39.9) Hx of precordial chest pain HLD (hyperlipidemia) Chronic diastolic (congestive) heart failure Carotid atherosclerosis HTN (hypertension) Aortic root dilatation Paranoia Depression Anxiety Eczema Osteoarthritis IUD (intrauterine device) in place Heart failure No blood products Atrial fibrillation Surgical History History of tonsillectomy and adenoidectomy Hx of cholecystectomy Social History household members: spouse and family Smoking Status: Former smoker alcohol intake: current Discharge Assessment & Plan Assessment and Plan Assessment: stable s/p R REAGAN Plan of Treatment: 1) Plan to discharge to home today with daughter/family pending final PT evaluation. Working w/ CM to arrange for HH PT for the first week and half along w/ HH nurse aid and bath aid. This should provide the additional support needed for the family to care for patient adequately in the postoperative period. Discussed with the son possibility of filling out FMLA paperwork for him to allow him to stay home and care for the patient further if needed. He will contact our office next week if he would like paperwork filled out. 2) Continue multimodal pain management with ice to the hip for additional pain control. Patient has post-op pain medication at home already. 3) Eliquis 5 mg twice per day beginning today for DVT prophylaxis. 4) Start outpatient physical therapy to work on range of motion and mobility. WBAT, no hip precuations. 5) Keep dressing intact, clean, dry until 2 week postop appointment. No soaking the incision site in pools or tubs. No topical ointments or creams to the incision site. 6) Follow up at [facility] in 2 weeks for a postop appointment and wound check. 7) Cefadroxil 500 mg twice per day for infection prophylaxis All patient and the families questions were answered, they demonstrates understanding and are in agreement with the plan. Call our office if any questions or concerns arise. Discharge Plan Discharge Plan Patient Disposition: Home Discharge orders & Medications Discharge Orders: Discharge (Order); Ordered 08/28/24 Ordered By: Carmela Galarza Prescriptions: New cefadroxil 500 mg capsule 500 mg PO BID Qty: 20 0RF Continued atorvastatin 40 mg Tablet 40 mg PO BEDTIME metoprolol succinate 100 mg Tablet Extended Release 24 Hr 100 mg PO DAILY metformin 1,000 mg Tablet 1,000 mg PO BID furosemide [Lasix] 20 mg Tablet 20 mg PO QAM duloxetine 20 mg Capsule,Delayed Release(Dr/Ec) 20 mg PO DAILY duloxetine 60 mg Capsule,Delayed Release(Dr/Ec) 60 mg PO DAILY Discontinued Xarelto 20 mg Tablet 20 mg PO DAILY Rx Instructions: must administer with evening meal Follow up/Referrals: Carmelina Bhatti ARNP [Non-Staff] - Eric Sanon MD [Physician] - 09/08/24 4:10 pm (Follow up at [facility] office in [place]) Diet/Activity/Treatments Diet: Diet as Tolerated Activity: Weightbearing as tolerated. Cold/Heat Therapy: Ice to hip as needed for pain. Other treatments: Start Eliquis 5mg BID on the morning of 08/28/2024. Skin/Wound/Dressing Care Report to your healthcare provider any signs of infection, such as:: chills, fever, night sweats, unusual drainage and unusual redness Dressing: May shower. Leave dressing in place until follow up in office. No bathing or otherwise soaking incision. Call the office if the dressing becomes saturated inside. Visit Report/Discharge Packet Instructions: DI for Hip Replacement Stand Alone Forms: Patient Portal/API, Surgery Discharge Discharge Data Primary Care Provider: Renetta Mata Attending Provider: Eric Sanon VTE Deep Vein Thrombosis/Pulmonary Embolism Present on Admission: No
[2024-08-28] MEDS: cephALEXin 250 MG CAPSULE 500 MG PO (12:49)
--- NOTE | 2024-08-28 14:05 | PT.IPTN ---
Current Diagnoses Unilateral primary osteoarthritis, right hip (08/27/24) Surgery Performed Operation Date: 08/27/24 10:45 Actual Procedures p Total Hip Arthroplasty/Anterior Approach(Right) - Eric Sanon MD Physical Therapy Treatment Note M2 PT-IP Current Condition Start: 08/27/24 16:36 Freq: NEEDED Status: Active Protocol: Document 08/28/24 08:45 AB (Rec: 08/28/24 13:20 AB [id number]) Physical Therapy Current Condition Current Condition Evaluation Date 08/28/24 Treatment Diagnosis s/p R REAGAN anterior; difficulty in walking Onset Date 08/27/24 M3 PT-IP Subjective Start: 08/27/24 16:36 Freq: NEEDED Status: Active Protocol: Document 08/28/24 14:05 AB (Rec: 08/28/24 15:16 AB [id number]) Subjective Physical Therapy Visit Type Type Treatment Note Visit Start Time 14:05 Visit Stop Time 14:15 Number of CUSTOMIZER Visits 0 Therapy Pain Assessment Location Right Thigh Scale Used pain scale not stated Description Burning,Sharp Pain Management Techniques Distraction,Modification of Treatment,Re-positioning M4 PT-IP Mobility and Gait Start: 08/27/24 16:36 Freq: NEEDED Status: Active Protocol: Document 08/28/24 14:05 AB (Rec: 08/28/24 15:16 AB [id number]) PT-Transfer Assessment Sit to and From Stand Sit to and from Stand Standby Assistance,1 Person Assistance,Use of Upper Extremities Equipment Transfer Assistive Device Gait Belt,Front Wheeled Walker Orthotic/Prosthetic Devices or Brace: No Transfer Ability Level of Assist Standby Assistance,1 Person Assistance Comments Mobility Comments [employer] assistant manager spoke with pt and family and now wanting caregiver training and pt son should be coming to do training. [employer] assistant manager informed PT again that pt's son is not available but daughter still wants the training and have a few questions to PT. pt sitting on the chair. spouse in room and daughter. daughter wants to know if they can take safety belt home and if they need that safety belt on pt at all time. informed daughter that they can take the safety belt home and that the use of safety belt depends on pt's progress and safety but will be safer to use it for the first few days especially first thing in the morning as pt might be having more pain or tight from not able to move overnight. informed that pt should stand first and see how steady she feels before moving and pt understood. daughter also understood. daughter was able to put safety belt on pt. pt completed sit to stand from chair SBA and ambulated in room using fWW ~ 40 ft SBA. daughter provided SBA. pt sat back on chair and positioned. pt and daughter without further concerns. informed [facility] that pt needs assist for getting clothes on for d/c. Gait Assessment Gait Gait Assistance Required: Standby Assistance Distance (Feet) 40 Able to Maintain Weight Bearing Status Yes During Gait Assistive Devices Assistive Device Gait Belt,Front Wheeled Walker Orthotic/Prosthetic Devices or Brace: No Gait Deviations General Gait Pattern Antalgic Factors Limiting Gait Function Factors Limiting Gait Function Decreased Activity Tolerance, Decreased Strength,Limited Range of Motion,Pain,Poor Balance,Poor Safety Awareness M5 PT-IP Objective Assessments Start: 08/27/24 16:36 Freq: NEEDED Status: Active Protocol: Document 08/28/24 08:45 AB (Rec: 08/28/24 13:20 AB [id number]) Orientation Orientation/Cognition Level of Alertness Alert Orientation Name,Place,Situation Language Function Ability No Deficits Noted Safety Awareness Decreased Safety Awareness Memory Description Short Term Impaired Gross Range of Motion Lower Extremity ROM Assessment Within Functional Limits Strength Lower Extremity Strength Assessment Right Impaired Hip 3-/5 Knee 3+/5 Coordination Assessment Gross Coordination Gross Coordination WNL Sensation Assessment Sensation Gross Sensation WNL Muscle Tone Muscle Tone WNL Yes M6 PT-IP Treatment Start: 08/27/24 16:36 Freq: NEEDED Status: Active Protocol: Document 08/28/24 14:05 AB (Rec: 08/28/24 15:16 AB [id number]) Physical Therapy Treatment Education Education Provided Safety M7 PT-IP Assessment and Plan Start: 08/27/24 16:36 Freq: NEEDED Status: Active Protocol: Document 08/28/24 14:05 AB (Rec: 08/28/24 15:16 AB [id number]) PT Summary Assessment and Plan Potential Rehabilitation Potential Good Summary Impairments Pain,ROM,Strength,Balance, Coordination,Cognition,Bed Mobility,Transfers,Gait, Activity Tolerance Progress Towards Goals Progressing Toward Goals Assessment Summary pt requiring SBA for transfers and ambulation using FWW. daughter aware of pt's needs and assistance. pt plans to go home today. Goals Bed Mobility Goal Independent Transfer Goal Independent,Front Wheeled Walker Gait Goal Independent,Front Wheel Walker Gait Distance 200 Other Goals improve transfers and ambulation using 4WW mod I ~ 250 ft Days to Meet Goals 5 Frequency of Treatment Frequency Of Treatment Twice a Day Treatment Plan Physical Therapy Treatment Plan Bed Mobility Training,Transfer Training,Gait Training, Therapeutic Exercise,Balance Retraining,Post Op Education, Discharge Planning,Hot or Cold Pack,Neuromuscular Re-ed, Coordination Retraining,Manual Therapy Weight Bearing Status Weight Bearing Status Weight Bear as Tolerated Allowed Weight Bearing Amount (enter % RLE WBAT or #) (%) Recommendations To Nursing Amount of Assist Needed Standby Assistance Discharge Recommendations PT Discharge Recommendations Home with Assistance, Outpatient PT Transportation Needs at Discharge Private Vehicle - PT assist SBA
--- NOTE | 2024-08-28 15:13 | PC.NURSE ---
Pt had uneventful day. Briana dsg to surgical hip CDI, ' Orders for D/C received; Both SL discontinued intact. Home instructions given w/understanding Pt w/family escorted by staff via W/C to waiting vehicle D/C in stable post op status
== END 2024-08-28 15:13 | disposition home or self-care (01) ==
LOC: OR 08:57 → AC 08:59
PROVIDERS: Referring Provider Orthopaedic Surgery Adult Reconstructive Orthopaedic Surgery; Visit Provider Orthopaedic Surgery Adult Reconstructive Orthopaedic Surgery
PROC: (CPT 27130; principal; 2024-08-27 10:45)
DX: M16.11 Unilateral primary osteoarthritis, right hip (principal); M25.751 Osteophyte, right hip; I48.0 Paroxysmal atrial fibrillation; E66.9 Obesity, unspecified; Z68.41 Body mass index [BMI] 40.0-44.9, adult
CPT/HCPCS: 27130; 73502; 76000; 82962; 85014; 85018; 97161; 97530; C1776; C1713; J0690; J1100; J2250; J2405; J2704; J3010; J3410